=== PATIENT | female | born 1950 ===

== ENCOUNTER 2022-01-27 11:28 | Inpatient (IN) | payer OTHER ==
[~2022-01-27] VITALS: Ht 167.6 cm; Wt 90.7 kg
[~2022-01-27 11:28] MED LIST: AZULFIDINE500 M1; FOLIC ACID0.4 MG; HUMIRA40 MG/0.8; LISINOPRIL2.5 MG; NORVASC2.5 M1; NORVASC2.5 MG; ZOCOR5 MG; [UNRECOGNIZED DRUG - OTHER]
[2022-01-27] MEDS ORDERED: ECOTRIN81 MG PO (11:57)
[2022-01-27] MEDS ORDERED: RAYOS5 MG PO (11:57)
[2022-01-27] MEDS ORDERED: BIOTIN1 M1 PO (11:58)
[2022-01-27] MEDS ORDERED: METHOTREXATE2.5 MG PO (11:58)
[2022-01-28] MEDS ORDERED: MAXIMUM D3325 MCG (07:56)
== END 2022-02-05 18:33 | disposition home or self-care (01) | DRG 392 ==
LOC: ER 11:28 → SEC-K 18:01 → MEDI 18:01 → MEDJ 01-29 16:54
PROVIDERS: ADMIT Internal Medicine; ATTEND Internal Medicine
PROC: BW21ZZZ Computerized Tomography (CT Scan) of Abdomen and Pelvis (ICD-10-PCS; principal; 2022-01-27)
DX: K57.32 Diverticulitis of large intestine without perforation or abscess without bleeding (principal); A04.72 Enterocolitis due to Clostridium difficile, not specified as recurrent; R10.32 Left lower quadrant pain; I10 Essential (primary) hypertension; E78.49 Other hyperlipidemia; Z20.822 Contact with and (suspected) exposure to COVID-19